=== PATIENT | female | born 1975 | race Caucasian/White ===

== ENCOUNTER 2020-04-29 17:27 | Emergency (ER) | payer OTHER ==
[~2020-04-29] VITALS: Ht 172.7 cm; Wt 115.7 kg
[2020-04-29] MEDS ORDERED: NAPROXEN500 M1 PO (17:43)
== END 2020-04-29 19:25 | disposition home or self-care (01) ==
LOC: ED 17:27
DX: S61.210A Laceration without foreign body of right index finger without damage to nail, initial encounter (principal); W26.0XXA Contact with knife, initial encounter; Z87.891 Personal history of nicotine dependence; Z79.899 Other long term (current) drug therapy
CPT/HCPCS: 12001; 90471; 90715; 99282-25

== ENCOUNTER 2020-09-23 15:26 | Emergency (ER) | payer OTHER ==
[~2020-09-23] VITALS: Ht 172.7 cm; Wt 115.7 kg
[~2020-09-23 15:26] MED LIST: NAPROXEN500 M1 PO
[2020-09-23] MEDS ORDERED: MELOXICAM7.5 MG PO (17:57)
[2020-09-23] MEDS ORDERED: ZYRTEC10 M3 PO (17:58)
[2020-09-23] MEDS ORDERED: VITAMIN D3125 MC2 PO (17:59)
[2020-09-23] MEDS ORDERED: TURMERIC500 M2 PO (17:59)
[2020-09-23] MEDS ORDERED: FOLBIC RF TABL1 EACH PO (18:00)
--- NOTE | 2020-09-23 19:34 | EKG ---
[facility] [address] [facility] [place] [address] Signed Normal sinus rhythm Possible Left atrial enlargement Borderline ECG No previous ECGs available Confirmed by CM HILARIO MD ([id number] on 09/23/2020 7:33:56 PM Electronically Signed By: CM HILARIO MD 09/23/201933 PATIENT NAME: ALBERT BENAVIDEZ KYRA Electrocardiogram DATE OF : 73 PHYSICIAN: CM HILARIO MD REPORT #: [id number] REPORT IS CONFIDENTIAL AND NOT TO BE RELEASED WITHOUT AUTHORIZATION
== END 2020-09-23 18:51 | disposition short-term general hospital (02) ==
LOC: ED 15:26
DX: I63.9 Cerebral infarction, unspecified (principal); Z87.891 Personal history of nicotine dependence; Z79.899 Other long term (current) drug therapy
CPT/HCPCS: 70450; 70496; 70498; 71045; 80053; 81001; 83735; 84484; 84703; 85025; 85610; 85730; 93005; 93010; 99285-25; J2997; Q9967; U0003